=== PATIENT | female | born 2000 | race Caucasian/White ===

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

== ENCOUNTER 2024-01-09 23:18 | Emergency (ER) | payer MEDICAID ==
[~2024-01-09] VITALS: Ht 167.6 cm; Wt 113.4 kg
[~2024-01-09 23:18] MED LIST: CEPH250C PO; FAMO20TA8 PO; ONDA-8 TL
[2024-01-09 23:43] VITALS: BP_SYST 141; PULSE 110; RESP 20; TEMP 97.9; O2SAT 98
[2024-01-10 00:23] LABS: BILIRUBIN,URINE NEGATIVE (NEGATIVE); BLOOD, URINE NEGATIVE (NEGATIVE); CLARITY/URINE CLEAR (CLEAR); COLOR,URINE YELLOW (YELLOW); GLUCOSE,URINE NEGATIVE (NEGATIVE); KETONES,URINE NEGATIVE (NEGATIVE); LEUKOCYTE ESTERASE ,URINE NEGATIVE (NEGATIVE); NITRITE, URINE NEGATIVE (NEGATIVE); PH,URINE 7.5 (5.0-8.0); PROTEIN URINE NEGATIVE (NEGATIVE); UROBILINOGEN,URINE 0.2 (0.2-1.0)
[2024-01-10] MEDS: KETOROLAC TROMETHAMINE 60 MG/2 ML VIAL IM ONE (01:12)
[2024-01-10] MEDS ORDERED: HYDR-3917 PO (01:32)
[2024-01-10] MEDS ORDERED: IBUP-1971 PO (01:32)
[2024-01-10 01:51] VITALS: BP_SYST 143; PULSE 100; RESP 22; TEMP 98; O2SAT 96
== END 2024-01-10 01:39 | disposition home or self-care (01) ==
LOC: SED 23:18
DX: N83.202 Unspecified ovarian cyst, left side (principal); R10.30 Lower abdominal pain, unspecified; R03.0 Elevated blood-pressure reading, without diagnosis of hypertension; Z88.0 Allergy status to penicillin; Z88.1 Allergy status to other antibiotic agents; Z79.899 Other long term (current) drug therapy; Z79.2 Long term (current) use of antibiotics
CPT/HCPCS: 99285; 81001; 81025; 76856; 96372; J1885; 81003

== ENCOUNTER 2024-03-22 13:44 | Emergency (ER) | payer MEDICAID ==
[~2024-03-22] VITALS: Ht 165.1 cm; Wt 104.3 kg
[~2024-03-22 13:44] MED LIST changes: +HYDR-3917 PO; +IBUP-1971 PO
[2024-03-22 14:01] VITALS: BP_SYST 126; PULSE 99; RESP 16; TEMP 98.2; O2SAT 99
[2024-03-22 15:22] LABS: INR 0.9 (0.8-1.2); PROTHROMBIN TIME 9.9 SECS (9.5-12.5)
[2024-03-22 15:32] LABS: CALCIUM 9.5 mg/dL (8.4-11.0); CREATININE 0.69 mg/dL (0.55-1.30); POTASSIUM 4.1 mmol/L (3.5-5.1)
[2024-03-22 15:36] LABS: BASOPHILS # (AUTO) 0.1 K/uL (0.0-0.2); BASOPHILS % (AUTO) 0.7 % (0.0-2.0); EOSINOPHILS # (AUTO) 0.2 K/uL (0.0-0.4); EOSINOPHILS % (AUTO) 1.6 % (0.0-4.0); HEMATOCRIT 39.5 % (36-48); HEMOGLOBIN 13.6 g/dL (12.0-16.0); LYMPHOCYTES # (AUTO) 2.5 K/uL (1.0-5.5); LYMPHOCYTES % (AUTO) 24.3 % (20.5-51.5); MEAN CORPUSCULAR HEMOGLOBIN 27 pg (27-31); MEAN CORPUSCULAR HGB CONC 34 % (32-36); MEAN CORPUSCULAR VOLUME 79 fL (79.0-98.0); MONOCYTES # (AUTO) 0.5 K/uL (0.0-1.0); MONOCYTES % (AUTO) 4.6 % (1.7-9.3); NEUTROPHILS % (AUTO) 68.8 % (40.0-70.0); PLATELET COUNT (AUTO) 302 K/uL (130-430); RED BLOOD CELL COUNT(AUTO) 5.01 MIL/uL (4.2-6.2); RED CELL DISTRIBUTION WIDTH 14.5 % (9.0-15.0); WHITE BLOOD COUNT (AUTO) 10.2 K/uL (4.8-10.8)
[2024-03-22 15:40] LABS: ERYTHROCYTE SEDIMENTATION RATE 12 MM/HR (0-20)
[2024-03-22] MEDS ORDERED: IBUP-1969 PO (16:32)
[2024-03-22] MEDS ORDERED: TRAM50TA2 PO (16:32)
[2024-03-22 16:37] VITALS: BP_SYST 118; PULSE 82; RESP 16; TEMP 98.2; O2SAT 99
== END 2024-03-22 16:37 | disposition left against medical advice (07) ==
LOC: SED 13:44
DX: R51.9 Headache, unspecified (principal); Z88.0 Allergy status to penicillin; Z88.1 Allergy status to other antibiotic agents; Z79.899 Other long term (current) drug therapy; Z79.2 Long term (current) use of antibiotics
CPT/HCPCS: 36415; 70450-TC; 80048; 85025; 85610; 85651; 85730; 99284